=== PATIENT | male | born 1995 | race Caucasian/White ===

== ENCOUNTER 2017-08-06 05:39 | Emergency (ER) | payer SELFPAY ==
[~2017-08-06 05:39] MED LIST: DIFL150T PO; KETO2%T TOP
[2017-08-06 05:41] VITALS: BP 146/89; PULSE 88; RESP 16; TEMP 97.6; O2SAT 99
[2017-08-06] MEDS ORDERED: AZITHROMYCIN PWD FOR SUSP 1 GM PACKET PO ONE (06:00)
[2017-08-06] MEDS ORDERED: cefTRIAXone 250 MG VIAL IM ONE (06:00)
--- NOTE | 2017-08-06 06:01 | PD ---
HPI Chief Complaint: Complaint Time Seen by Provider: 05:52 Travel History International Travel<30 days: No Contact w/Intl Traveler<30days: No Traveled to known affect area: No History of Present Illness HPI 22-year-old male presents to emergency department for evaluation for purulent drainage from his penis. Patient states that he believes he cut the inside of his penis but cannot tell me how. He tells me he is in a monogamous relationship with a girl that accompanies him. They do not utilize condoms prophylaxis. Denies abdominal pain. There is burning with urination. Discharge was noticed today. No other symptoms to report. PFSH Past Medical History Cardiovascular Problems: Yes (dilated cardiomyopathy, diagnosed at age 5-month- old) Gastrointestinal Disorders: No Genitourinary: Yes (OCCASIONAL BEDWETTING AT NIGHT, DUE TO POSSIBLE ALLERGY) Musculoskeletal: No Psychiatric: Yes (HX OF BIPOLAR, NOT MEDICATED) Respiratory: No ?: Not Past Surgical History Surgical History: No Previous Surgery Other Surgery: No Social History Alcohol Use: Yes Tobacco Use: No Substance Use: Yes (MARIJUANA ) Allergies-Medications (Allergen,Severity, Reaction): Coded Allergies: No Known Allergies (Unverified , 08/06/17) Reported Meds & Prescriptions Reported Meds & Active Scripts Active Nizoral (Ketoconazole) 2 % Cr 2 % TOP BID 30 Days Diflucan 150 mg (Fluconazole) 150 Mg Tab 150 Mg PO WEEKLY Review of Systems Except as stated in HPI: all other systems reviewed are Neg Physical Exam Narrative GENERAL: Well-nourished male patient, in no acute distress SKIN: Focused skin assessment warm/dry. HEAD: Atraumatic. Normocephalic. EYES: Pupils equal and round. No scleral icterus. No injection or drainage. ENT: No nasal bleeding or discharge. Mucous membranes pink and moist. NECK: Trachea midline. No JVD. CARDIOVASCULAR: Regular rate and rhythm. No murmur appreciated. RESPIRATORY: No accessory muscle use. Clear to auscultation. Breath sounds equal bilaterally. GASTROINTESTINAL: Abdomen soft, non-tender, nondistended. Hepatic and splenic margins not palpable. GENITOURINARY: Circumcised. Testes descended bilaterally without evidence of rotation. No lesions or erythema. Thick yellow urethral discharge MUSCULOSKELETAL: No obvious deformities. No clubbing. No cyanosis. No edema. NEUROLOGICAL: Awake and alert. No obvious cranial nerve deficits. Motor grossly within normal limits. Normal speech. Data Data Last Documented VS Vital Signs Date Time Temp Pulse Resp B/P (MAP) Pulse Ox O2 Delivery O2 Flow Rate FiO2 08/06/17 07:31 99 08/06/17 05:41 97.6 88 16 Room Air Orders Orders Urinalysis - C+S If Indicated (08/06/17 05:55) Gc And Chlamydia Pcr (08/06/17 05:55) Ceftriaxone Inj (Rocephin Inj) (08/06/17 06:00) Azithromycin Powd Pack (Zithromax Powd P (08/06/17 06:00) Urine Culture (08/06/17 05:58) Lidocaine Pf 1% Inj (Xylocaine-Mpf 1% In (08/06/17 06:35) Labs Laboratory Tests Test 08/06/17 05:58 Urine Color YELLOW Urine Turbidity HAZY Urine pH 5.5 Urine Specific [place] 1.034 Urine Protein 30 mg/dL Urine Glucose (UA) NEG mg/dL Urine Ketones 10 mg/dL Urine Occult Blood MOD Urine Nitrite NEG Urine Bilirubin NEG Urine Urobilinogen 2.0 MG/DL Urine Leukocyte Esterase LARGE Urine RBC 32 /hpf Urine WBC /hpf Urine Calcium Oxalate Crystals RARE /hpf Urine Bacteria OCC /hpf Urine Mucus FEW /lpf Microscopic Urinalysis Comment CULTURE INDICATED Chlamydia trachomatis DNA (PCR) NOT DETECTED Neisseria gonorrhoeae DNA (PCR) DETECTED MDM Medical Decision Making Medical Screen Exam Complete: Yes Emergency Medical Condition: Yes Medical Record Reviewed: Yes Differential Diagnosis Urethritis versus UTI versus STD Narrative Course 22 year-old male presents to emergency department for evaluation of discharge from his penis. Patient has a purulent urethral discharge. He is treated with Rocephin and azithromycin. GC PCR and UA are sent for analysis. Pt is treated empirically. His girlfriend Rizwana is at bedside and pt gives verbal consent, witnessed by Michelle CARTWRIGHT, to discuss in front of her and to call her cell phone with results. They will be discharged at this time 1914 I called the number provided and spoke with Rizwana in regards to the patient' s test results, with permission previously provided by patient. She verbalizes understanding and reports they will both be in later for her to be treated. Diagnosis Primary Impression: Urethritis Referrals: Primary Care Physician Urologist Patient Instructions: General Instructions, Safe Sex (ED) Additional Instructions: It is important that you utilize condom prophylaxis Follow-up with a primary care provider Return immediately with any acute worsening of symptoms Med/Other Pt SpecificInfo: No Change to Meds Disposition: 01 DISCHARGE HOME Condition: Stable Jenae Arguelles Aug 06, 2017 06:01
[2017-08-06 06:24] LABS: BACTERIA, URINE OCC /hpf; BLOOD, URINE MOD (NEG); CALCIUM OXALATE CRYSTALS,URINE RARE /hpf; COMMENT (UR) CULTURE INDICATED; CULTURE IF INDICATED CULTURE INDICATED; GLUCOSE,URINE NEG (NEG); KETONE, URINE 10 mg/dL (NEG); MUCUS URINE FEW /lpf (OCC); NITRITE,URINE NEG (NEG); PH, URINE 5.5 (5.0-8.5); URINE COLOR YELLOW (YELLW/STRAW)
[2017-08-06] MEDS ORDERED: LIDOCAINE HCL 1% PF 2 ML VIAL ONE (06:35)
[2017-08-06 08:18] LABS: CHLAMYDIA PCR NOT DETECTED (NOT DETECT); NEISSERIA PCR DETECTED (NOT DETECT)
== END 2017-08-06 07:34 | disposition home or self-care (01) ==
LOC: NEPD 05:39
DX: N34.2 Other urethritis (principal); I42.0 Dilated cardiomyopathy; F31.9 Bipolar disorder, unspecified; Z79.899 Other long term (current) drug therapy
CPT/HCPCS: 81001; 87086; 87491; 87591; 96372; 99284; J0696

== ENCOUNTER 2017-09-30 13:56 | Emergency (ER) | payer SELFPAY ==
[~2017-09-30] VITALS: Ht 185.4 cm; Wt 84.0 kg
[2017-09-30 14:00] VITALS: BP 151/76; PULSE 84; RESP 18; TEMP 98; O2SAT 98
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
[2017-09-30 14:45] LABS: AUTOMATED NEUTROPHIL # 6.4 TH/MM3 (1.8-7.7); BASOPHIL # 0.1 TH/MM3 (0-0.2); BASOPHIL % 1.6 % (0.0-2.0); EOSINOPHIL # 0.1 TH/MM3 (0-0.4); EOSINOPHIL % 0.7 % (0.0-4.0); HEMATOCRIT 45.1 % (39.0-51.0); HEMO FLAGS DIFF FINAL; LYMPH % 16.2 % (9.0-44.0); LYMPHOCYTE # 1.4 TH/MM3 (1.0-4.8); MEAN CELL VOLUME 78.5 FL (80.0-100.0); MEAN CORPUSCULAR HEMOGLOBIN 26.1 PG (27.0-34.0); MEAN CORPUSCULAR HGB CONC 33.3 % (32.0-36.0); MONO % 7.2 % (0.0-8.0); NEUT % 74.3 % (16.0-70.0); PLATELET COUNT 252 TH/MM3 (150-450); RED BLOOD COUNT 5.74 MIL/MM3 (4.50-5.90); RED CELL DISTRIBUTION WIDTH 12.7 % (11.6-17.2); WHITE BLOOD COUNT 8.6 TH/MM3 (4.0-11.0)
[2017-09-30 15:01] LABS: POTASSIUM 4.3 MEQ/L (3.5-5.1)
[2017-09-30 15:04] LABS: BICARBONATE 30.2 MEQ/L (21.0-32.0)
[2017-09-30] MEDS ORDERED: IOHEXOL 350 MG/ML 10 ML VIAL (for RAD DIAG) IVCONTRAST ONE (15:30)
[2017-09-30 15:46] VITALS: BP 133/79; PULSE 79; RESP 18; O2SAT 100
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
== END 2017-09-30 16:57 | disposition home or self-care (01) ==
LOC: PHED 13:56
DX: S40.211A Abrasion of right shoulder, initial encounter (principal); S50.811A Abrasion of right forearm, initial encounter; S60.512A Abrasion of left hand, initial encounter; S60.511A Abrasion of right hand, initial encounter; S40.021A Contusion of right upper arm, initial encounter; R10.11 Right upper quadrant pain; Z86.79 Personal history of other diseases of the circulatory system; Z86.59 Personal history of other mental and behavioral disorders; V29.9XXA Motorcycle rider (driver) (passenger) injured in unspecified traffic accident, initial encounter
CPT/HCPCS: 71010; 71260; 73060; 73090; 74177; 80048; 85025; 99285; Q9967